=== PATIENT | female | born 1995 | race African-American/Black ===

== ENCOUNTER 2021-02-03 05:19 | Emergency (ER) | payer OTHER ==
[~2021-02-03] VITALS: Ht 175.3 cm; Wt 52.4 kg
--- NOTE | 2021-02-03 05:40 | NUR ---
PT CAME INTO ED THIS AM DUE TO NECK/BACK PAIN SINCE DECEMBER IN ADDITION TO EPISODES OF LOOSE STOOL AND NUMBNESS/TINGLING IN ARMS AND LEGS. PT REPORTS ALL SYMPTOMS, ALONG WITH ABODMINAL DISCOMFORT APPEAR TO COME AND GO. NONE ARE CONSTANT. PT NAD, RESTING ON GURNEY, PLACED ON SPO2/BP MONITORING AT THIS TIME. VSS. WCTM.
[2021-02-03 06:09] LABS: HCT (SEDRATE) 38.8 % (34.6-47.8)
[2021-02-03 06:10] LABS: BASOPHILS % (AUTO) 1 % (0-1); EOSINOPHILS % (AUTO) 1 % (1-7); LYMPHOCYTES % (AUTO) 53 % (22-44); MEAN CORPUSCULAR HGB CONC 34.1 g/dL (32.4-35.8); MEAN PLATELET VOLUME 7.3 fL (7.4-10.4); MONOCYTES % (AUTO) 4 % (2-9); NEUTROPHILS % (AUTO) 41 % (42-75); PLATELET COUNT 260 x10^3/uL (130-400); RED BLOOD COUNT 4.17 x10^6/uL (3.82-5.3); RED CELL DISTRIBUTION WIDTH 12.2 % (9.6-15.2)
[2021-02-03 06:12] LABS: MD NO
[2021-02-03 06:18] LABS: CHLORIDE 110 mmol/L (98-107)
--- NOTE | 2021-02-03 06:22 | NUR ---
pt ambulated to and from restroom with a smooth and steady gait, nad, ua obtained and walked to lab, provided blankets for comfort, bed in lowest, call light on lap, denies additional questions or needs, vss, wctm. waiting for lab tests.
[2021-02-03 06:32] LABS: MICROSCOPIC NOT IND
[2021-02-03 06:36] LABS: ALANINE AMINOTRANSFERASE 20 U/L (12-78); ALBUMIN 3.6 g/dL (3.4-5.0); ALKALINE PHOSPHATASE 54 U/L (45-117); ANION GAP 6 mmol/L (5-15); BILIRUBIN,TOTAL 1.7 mg/dL (0.2-1.0); CALCIUM 8.8 mg/dL (8.5-10.1); CREATININE 0.62 mg/dL (0.55-1.02)
--- NOTE | 2021-02-03 06:55 | NUR ---
report to carlos springer, pt care transferred at this time.
[2021-02-03 07:10] VITALS: BP 114/74
== END 2021-02-03 07:16 | disposition home or self-care (01) ==
LOC: ED 07:00
DX: Z00.8 Encounter for other general examination (principal); R20.2 Paresthesia of skin; R94.31 Abnormal electrocardiogram [ECG] [EKG]
CPT/HCPCS: 36415; 80053; 81003; 84443; 85025; 85651; 93005; 99284

== ENCOUNTER 2021-06-01 05:07 | Emergency (ER) | payer OTHER ==
[~2021-06-01] VITALS: Ht 175.3 cm; Wt 53.3 kg
--- NOTE | 2021-06-01 06:52 | NUR ---
Report given to MALICK Steele no further questions at this time.
--- NOTE | 2021-06-01 06:55 | NUR ---
ASSUING CARE OF PT AFTER BEDSIDE REPORT. PT RESTING IN BED. LAB AT BEDSIDE. NADN. MCKEON.
[2021-06-01 07:43] VITALS: BP 112/77
--- NOTE | 2021-06-01 07:43 | NUR ---
DR. JENKINS TO BEDSIDE TO DISCUSS RESULTS
--- NOTE | 2021-06-01 07:55 | NUR ---
Patient given discharge instructions and they have confirmed that they understand the instructions. Patient ambulatory with steady gait. NAD, all questions answered appropriately, denies additional needs at this time. No personal belongings left in room after discharge.
== END 2021-06-01 07:56 | disposition home or self-care (01) ==
LOC: ED 07:06
DX: N93.8 Other specified abnormal uterine and vaginal bleeding (principal)
CPT/HCPCS: 36415; 84702; 86901; 99283